=== PATIENT | female | born 1990 | race Caucasian/White ===

== ENCOUNTER → 2019-12-23 12:07 | Outpatient (CLI) | payer BC, SELFPAY ==
--- NOTE | ~2019-12-23 | XR_ITS ---
EXAMINATION: XR wrist RT min 3V EXAM DATE: 12/23/2019 12:23 INDICATION: No known recent injury provided at this time. Pain of the right wrist posteriorly. TECHNIQUE: Right wrist frontal, frontal with ulnar deviation, oblique and lateral projections obtain ed and reviewed. There is no prior study for comparison. FINDINGS: Right wrist scapholunate joint space is maintained. There are no bony erosions identified. There are no acute fractures or dislocations identified. There is no subcutaneous gas. The soft tissue is unremarkable. There are no radiopaque foreign bodies. IMPRESSION: Unremarkable right wrist. Reviewed, dictated and finalized at location B. IMPRESSION: Unremarkable right wrist.
== END ==
PROVIDERS: Visit Provider Chiropractor
DX: M25.531 Pain in right wrist (principal)
CPT/HCPCS: 73110